=== PATIENT | female | born 1980 | race Caucasian/White ===

== ENCOUNTER 2017-01-28 19:29 | Emergency (ER) | payer OTHER ==
[~2017-01-28] VITALS: Ht 157.5 cm; Wt 106.6 kg
[~2017-01-28 19:29] MED LIST: IBUP-974 PO; ONDA8TAB PO
[2017-01-28 19:38] VITALS: BP 150/86
--- NOTE | 2017-01-28 21:27 | NUR ---
TO ER [id number]
[2017-01-28] MEDS: KETOROLAC 60 MG/2 ML VIAL IM ONE (21:54)
[2017-01-28 22:11] VITALS: BP 148/78
== END 2017-01-28 22:11 | disposition home or self-care (01) ==
LOC: MED 19:29
DX: R07.89 Other chest pain (principal); R03.0 Elevated blood-pressure reading, without diagnosis of hypertension; K21.9 Gastro-esophageal reflux disease without esophagitis
CPT/HCPCS: 71010; 93005; 96372; 99284; J1885